=== PATIENT | female | born 1985 | race African-American/Black ===

== ENCOUNTER 2018-12-13 09:33 | Emergency (ER) | payer OTHER ==
[~2018-12-13] VITALS: Ht 175.3 cm; Wt 55.3 kg
[2018-12-13 09:35] VITALS: BP_SYST 114
[2018-12-13] MEDS ORDERED: CEPHALEXIN 500 MG CAPSULE PO ONE (10:00)
[2018-12-13] MEDS ORDERED: LIDOCAINE 2%, 20 ML MDV INJ ONE (10:00)
[2018-12-13] MEDS ORDERED: HYDROcodone/ACETAMIN 5-325 MG TAB (NORCO/ VICODIN) PO ONE (10:45)
[2018-12-13 10:46] VITALS: BP_SYST 114
== END 2018-12-13 10:46 | disposition home or self-care (01) ==
LOC: SED 09:33
DX: N61.1 Abscess of the breast and nipple (principal)
CPT/HCPCS: 10060; 99283; J2001

== ENCOUNTER 2018-12-15 10:08 | Emergency (ER) | payer OTHER ==
[~2018-12-15] VITALS: Ht 167.6 cm; Wt 56.7 kg
[2018-12-15 10:15] VITALS: BP_SYST 123
[2018-12-15] MEDS ORDERED: LIDOCAINE/EPI 2% 1:100000 20 ML VIAL INJ ONE (12:08)
[2018-12-15] MEDS ORDERED: HYDROcodone/ACETAMIN 5-325 MG TAB (NORCO/ VICODIN) PO ONE (12:15)
[2018-12-15 12:40] VITALS: BP_SYST 121
== END 2018-12-15 12:40 | disposition home or self-care (01) ==
LOC: SED 10:08
DX: N61.1 Abscess of the breast and nipple (principal)
CPT/HCPCS: 99283